=== PATIENT | male | born 1995 | race Caucasian/White ===

== ENCOUNTER 2016-12-04 15:20 | Emergency (ER) | payer BC ==
[~2016-12-04] VITALS: Ht 180.3 cm; Wt 92.5 kg
[~2016-12-04 15:20] MED LIST: Z.0.NO CURRENT MEDS
[2016-12-04 15:33] VITALS: BP 140/83; PULSE 74; RESP 16; TEMP 98.6; O2SAT 100
--- NOTE | 2016-12-04 15:47 | PD ---
HPI Chief Complaint: Complaint Time Seen by Provider: 15:39 Travel History International Travel<30 days: No Contact w/Intl Traveler<30days: No Traveled to known affect area: No History of Present Illness HPI This is a 21-year-old male who presents to the emergency department concerned because his girlfriend tested positive for chlamydia. He has not had any dysuria, frequency, urgency or cloudy urine. He was concerned because he didn' t want to pass it back to her because she is . PFSH Past Medical History Diminished Hearing: No Immunizations Current: Yes Social History Alcohol Use: Yes (OCC) Tobacco Use: No Substance Use: No Allergies-Medications (Allergen,Severity, Reaction): Coded Allergies: No Known Allergies (Verified , 12/04/16) Reported Meds & Prescriptions Reported Meds & Active Scripts Active Reported No Current Meds (Miscellaneous Medication) Misc Review of Systems General / Constitutional: No: Fever, Chills Gastrointestinal: No: Abdominal Pain Physical Exam Narrative GENERAL: Well-appearing, no acute distress, nontoxic SKIN: Warm and dry. HEAD: Atraumatic. Normocephalic. ENT: No nasal bleeding or discharge. Moist mucous membranes MUSCULOSKELETAL: No obvious deformities. No clubbing. No cyanosis. No edema. NEUROLOGICAL: Awake and alert. No obvious cranial nerve deficits. Motor grossly within normal limits. Normal speech. PSYCHIATRIC: Appropriate mood and affect; insight and judgment normal. Data Data Last Documented VS Vital Signs Date Time Temp Pulse Resp B/P Pulse Ox O2 Delivery O2 Flow Rate FiO2 12/04/16 15:33 98.6 74 16 140/83 100 MDM Medical Decision Making Medical Screen Exam Complete: Yes Emergency Medical Condition: Yes Differential Diagnosis Urethritis Narrative Course This is a 21-year-old male who presents to the emergency department having had his girlfriend is positive for chlamydia. Patient is asymptomatic. Patient was treated empirically for urethritis. He will be discharged home. Diagnosis Primary Impression: Exposure to STD Patient Instructions: General Instructions Additional Instructions: If you develop increasing or painful urination, cloudy urine or blood in her urine return to a doctor. Med/Other Pt SpecificInfo: No Change to Meds Disposition: 01 DISCHARGE HOME Condition: Stable Trish Shah MD Dec 04, 2016 15:47
[2016-12-04] MEDS ORDERED: LIDOCAINE HCL 1% 50 ML VIAL XX ONE (16:00)
[2016-12-04] MEDS ORDERED: SODIUM CHLORIDE 0.9% FLUSH 5 ML FLUSH IVF PRN (16:00)
[2016-12-04] MEDS ORDERED: metroNIDAZOLE 500 MG TAB PO ONE (16:00)
[2016-12-04] MEDS ORDERED: cefTRIAXone 250 MG VIAL IM ONE (16:00)
[2016-12-04] MEDS ORDERED: AZITHROMYCIN PWD FOR SUSP 1 GM PACKET PO ONE (16:00)
== END 2016-12-04 16:45 | disposition home or self-care (01) ==
LOC: PHED 15:20
DX: Z20.2 Contact with and (suspected) exposure to infections with a predominantly sexual mode of transmission (principal); N34.2 Other urethritis
CPT/HCPCS: 96372; 99283; J0696